=== PATIENT | female | born 1980 | race African-American/Black ===

== ENCOUNTER 2019-07-04 21:49 | Emergency (ER) | payer SELFPAY ==
[~2019-07-04] VITALS: Ht 160 cm; Wt 51.0 kg
[2019-07-05] MEDS ORDERED: BISACODYL 10MG SUPP PR ONE (03:15)
[2019-07-05 03:29] LABS: CLARITY URINE TURBID (CLEAR); COLOR URINE YELLOW (YELLOW); KETONES URINE TRACE (NEGATIVE); LEUKOCYTE ESTERASE URINE 2+ (NEGATIVE); NITRITE URINE POSITIVE (NEGATIVE); OCCULT BLOOD URINE NEGATIVE (NEGATIVE); PH URINE 7.5 (4.5-8.0); PROTEIN URINE 1+ (NEGATIVE); SPECIFIC GRAVITY URINE 1.038 (1.005-1.030)
[2019-07-05 04:30] VITALS: BP 132/81
[2019-07-05] MEDS ORDERED: CEPHALEXIN 250MG CAPSULE PO NR (04:30)
== END 2019-07-05 04:30 | disposition home or self-care (01) ==
LOC: ER 21:49
DX: N39.0 Urinary tract infection, site not specified (principal); H54.7 Unspecified visual loss; Z99.3 Dependence on wheelchair
CPT/HCPCS: 81003; 87077; 87186; 99283

== ENCOUNTER 2019-07-05 22:55 | Emergency (ER) | payer SELFPAY | END 2019-07-06 | disposition left against medical advice (07) | LOC: ER 22:55 | DX: M79.606 Pain in leg, unspecified (principal); Z53.21 Procedure and treatment not carried out due to patient leaving prior to being seen by health care provider ==

== ENCOUNTER 2019-07-06 23:55 | Emergency (ER) | payer SELFPAY ==
[~2019-07-06] VITALS: Ht 157.5 cm; Wt 53.0 kg
[2019-07-07 00:54] VITALS: BP 129/64
== END 2019-07-07 02:31 | disposition left against medical advice (07) ==
LOC: ER 23:55
DX: Z53.21 Procedure and treatment not carried out due to patient leaving prior to being seen by health care provider (principal)